=== PATIENT | male | born 1945 | race Caucasian/White ===

== ENCOUNTER → 2022-04-26 02:39 | Outpatient (CLI) | payer MEDICARE, BC, SELFPAY ==
--- NOTE | 2022-04-26 14:00 | DI.US_ITS ---
APPROVED REPORT EXAM: Comprehensive 2D, Doppler, and color-flow Echocardiogram Patient Location: Out-Patient Baggage Porter: Danyelle Pardo RDCS (AE) Indications: SOB,Edema Other Information Study Quality: Adequate Conclusion Normal left ventricular wall thickness and chamber size. Estimated ejection fraction is 55 to 60%. Wall motion is normal Normal right ventricular size and systolic function Both atria are normal in size Trileaflet aortic valve without stenosis or regurgitation Normal mitral valve with mild regurgitation Normal tricuspid valve with trace to mild regurgitation. Estimated right ventricular systolic pressu re is 30 mmHg Wall motion Left Ventricle The left ventricle is normal size. The left ventricular systolic function is normal. The left ventric ular ejection fraction is within the normal range. There is normal left ventricular wall thickness. T here is normal LV segmental wall motion. There is no ventricular septal defect visualized. LVEF is 57 %. Right Ventricle The right ventricle is normal size. The right ventricular systolic function is normal. The RVSP is 29 .6mmHg. Atria The left atrium size is normal. The right atrium size is normal. The interatrial septum is intact wit h no evidence for an atrial septal defect. Aortic Valve The aortic valve is normal in structure. Aortic valve is trileaflet. There is no aortic valvular sten osis. No aortic regurgitation is present. Mitral Valve The mitral valve is normal in structure. No evidence of mitral valve stenosis. Mild mitral regurgitat ion. Tricuspid Valve The tricuspid valve is normal in structure. There is no tricuspid valve stenosis. Trace to mild tricu spid regurgitation. Pulmonic Valve The pulmonary valve is normal in structure. There is no pulmonic valvular stenosis. There is no pulmo kamla valvular regurgitation. Great Vessels The aortic root is normal in size. The ascending aorta is normal in size. Aortic arch is normal in ca liber. IVC is normal in size and collapses >50% with inspiration. Pericardium There is no pericardial effusion. 2D Dimensions IVSD d PLAX 0.85 cm M: 0.6-1.2 LV Vol A2C d MOD 160.2 mL LVPW d PLAX 0.85 cm M: 0.6 - 1.2 LV Vol A4C d MOD 148.9 mL LVID d PLAX 4.79 cm M: 4.2 - 5.8 LA vol/ BSA A2C s A-L 31.7 mL/m2 LVDs 3.25 cm M: 2.5 - 4.0 LA vol/ BSA A4C s A-L 34.9 mL/m2 Ao Root d 2.55 cm M: 3.1 - 3.7 LA Vol/ BSA Biplane s A-L 35.2 mL/m2 RA Area A4C 13.65 cm2 LA Area A4C s MOD 23.80 cm2 RA Vol/ BSA A4C s A-L 16.5 mL/m2 LA Area A2C s MOD 21.41 cm2 Ao Asc Diam d 3.25 cm M: 2.6 - 3.4 LV EF A4C MOD 55.3 % LV EF Teichholz 59.9 % LV EF A2C MOD 57.9 % LVEF (Aponte's) 57.11 % M: 52 - 72 LV EF Biplane MOD 57.1 % LV Volume 114.87 mL M: 62 - 150 SV 89.36 mL LV Volume Index 53.92 mL/m2 M: 34 - 74 SV Index 41.84 mL/m2 LV Vol Biplane MOD 156.5 mL FS 31.90 % M-Mode TAPSE 2.66 cm (M/F) >1.7 LV Diastology MV E' medial 0.075 (>0.07 m/s) E/A Ratio 0.6 LV E/e MED 7.35 (<14) MV E Vmax 0.55 (0.4-1.3 m/s) MV E' lateral 0.108 (>0.1 m/s) MV A Vmax 0.90 (0.4-1.3 m/s) LV E/e LAT 5.10 (<14) MV E/A Ratio 0.59 MV E/E' medial 7.36 MV E/E' lateral 5.13 Aortic Valve LVOT Area 3.59 cm2 AoV Area Vmax 2.77 cm2 LVOT Vmax 0.91 m/s AoV Area/ BSA (Vmax) 1.30 cm2/m2 LVOT Mean Roland. 0.58 m/s DIGNA Mean Roland. 2.49 cm2 LVOT Peak Grad 3.3 mmHg DIGNA Mean Roland. Index 1.17 cm2/m2 LVOT Mean Grad 1.6 mmHg LVOT VTI 0.194 m LVOT Diam s 2.10 cm AoV Vmax 1.19 m/s Velocity Ratio 0.76 AoV Mean Roland. 0.83 m/s AoV Peak Grad 5.6 mmHg LVOT SV 69.57 mL AoV Mean Grad 3.2 mmHg AoV VTI 0.252 m AoV Area VTI 2.76 cm2 AoV Area/ BSA (VTI) 1.29 cm/m2 Mitral Valve MV DT 213 (160-240 msec) MV PHT 62 msec MV Area PHT 3.57 cm2 MV VTI 0.270 m MV Area VTI 2.58 (4.0-6.0 cm2) Pulmonary Valve PV Vmax 1.04 (0.5-1.5 m/s) RVOT Peak Gr. 1.56 mmHg PV Peak Grad 4.4 mmHg RVOT Mean Gr. 0.80 mmHg PV Mean Grad 2.3 mmHg RVOT VTI 0.147 m PV VTI 0.263 m RVOT Vmax 0.62 m/s Tricuspid Valve TR Peak Grad 26.6 mmHg TR Vmax 2.58 m/s RA Pressure 3.00 mmHg RVSP (TR) 29.6 mmHg
== END ==
PROVIDERS: Visit Provider Neuromusculoskeletal Medicine & OMM
DX: R06.02 Shortness of breath (principal)
CPT/HCPCS: 93306

== ENCOUNTER → 2022-06-28 12:30 | Outpatient (BNVA) | payer MEDICARE, BC, SELFPAY | PROVIDERS: PCP Neuromusculoskeletal Medicine & OMM; Visit Provider Internal Medicine Cardiovascular Disease | DX: Z86.16 Personal history of COVID-19 (principal); R07.9 Chest pain, unspecified; I10 Essential (primary) hypertension; I49.3 Ventricular premature depolarization | CPT/HCPCS: 93005; 99203 ==

== ENCOUNTER 2022-06-28 12:37 | Outpatient (CLI) | payer MEDICARE, BC, SELFPAY ==
--- NOTE | 2022-06-28 12:30 | RT.EKG_ITS ---
APPROVED REPORT Exam: Resting ECG Reason for Exam: NPV chest pain Patient Location: O HR:74 bpm ECG Measurements Heart Rate 74 AXIS RI 162 P -18 QRSd 87 QRS -45 QT 383 T 19 QTc 425 Conclusion Sinus rhythm...normal P axis, V-rate 50- 99 Ventricular trigeminy...trigeminy string>6 w/ V complexes LAFB
== END 2022-06-28 12:38 | disposition home or self-care (01) ==
LOC: DI.CARD 12:43
PROVIDERS: PCP Neuromusculoskeletal Medicine & OMM; Visit Provider Internal Medicine Cardiovascular Disease
DX: R07.9 Chest pain, unspecified (principal); R94.31 Abnormal electrocardiogram [ECG] [EKG]
CPT/HCPCS: 93010

== ENCOUNTER 2022-07-05 00:59 | Outpatient (CLI) | payer MEDICARE, BC, SELFPAY ==
--- NOTE | 2022-07-05 07:00 | DI.NM_ITS ---
APPROVED REPORT Exam: Exercise Treadmill Patient Location: Out-Patient Room/Bed: Stress Nurse: Elaine Hdez RN Ordering Provider:LUCY STRONG, Contact Number: BMI: 25.03 Baseline Rhythm: Sinus Rhythm Indications: PVCs Medical History Medical History: Asthma, Bradycardia, Dyspnea, HLD, HTN, COPD Cardiac Medications: Albuterl sulfate, Quinapril, Allergies: Aspirin, Iodinated contrast, NSAIDs, Penicillins Cardiac Risk Factors: HTN, Hyperlipidemia, Asthma, COPD Previous Cardiac Procedures: None Pretest Chest Pain Characteristics: No chest pain Exercise History: Indeterminate Physical Disabilities: None Lung Sounds: Clear to auscultation Heart Sounds: Regular Stress Test Details Test: Exercise stress testing was performed using a Raza protocol. Nuclear Acquisition: Rest Tc-99m/Stress Tc-99m 1 day Rest Isotope: Tc-99m Sestamibi. Dose: 10.0 Date: 07/05/2022 Injection Time: 1112 Stress Isotope: Tc-99m Sestamibi. Dose: 30.0 Date: 07/05/2022 Injection Time: 1325 HR Resting HR Supine: 82 bpm Max Heart Rate (APMHR): 141.559968 bpm Resting HR Standin bpm Target HR (85% APMHR): 119.018052 bpm Max HR Achieved: 150 bpm % of APMHR: 106.38 Recovery HR: 96 bpm HR response to stress: Normal HR response to stress BP Resting BP Supine: 164/88 mmHg Resting BP Standin/76 mmHg Max BP: 220/70 mmHg Recovery BP: 178/64 mmHg BP response to stress: Normal blood pressure response to stress. Comment: Hypertensive at baseline ECG Resting ECG: Sinus Rhythm Ectopy: frequent PVCs, intermittent PVC bigeminy Comment: abnormal R wave progression Stress ECG: Sinus Tachycardia ST Change: No significant ST segment changes noted Arrhythmia: Frequent multifocal PVCs, intermittent PVC bigeminy, PVC couplets. Recovery ECG: Sinus Rhythm Recovery ST Change: No significant ST segment changes noted Recovery Arrhythmia: PACs, frequent multifocal PVCs, intermittent PVC bigeminy Clinical Reason for Termination: Dyspnea Stress Symptoms: Dyspnea Exercise duration: 4 min26 sec Highest Stage Reached: Stage 2: 2.5 mph at 12% grade. Exercise capacity: 6.33 METs Smith Treadmill Score: 3.4 Rate Pressure Product: 43334 Stress ECG Conclusion 1. Resting electrocardiogram showed left anterior fascicular block, late transition, premature ventri cular contractions 2. Patient exercised on the Raza protocol and completed a workload of 6.33 METS, limited by shortnes s of breath 3. Normal heart rate and blood pressure response to exercise. Patient achieved greater than 100% of predicted heart rate for age 4. There was no electrocardiographic evidence of myocardial ischemia 5. Frequent premature ventricular contractions were seen throughout 6. See MPI report Smith Treadmill Score is 3.4 which is Moderate risk. Stress Test Summary STAGE Time (mins) Speed (mph) Grade (%) HR BP SpO2 SYMPTOMS METS Supine 82 164/88 Standing 85 158/76 94 1 3 1.7 10 118 174/60 4.5 1 min recovery 133 220/70 3 min recovery 99 202/70 6 min recovery 96 178/64 Unable to get accurate SpO2 throughout testing period, despite troubleshooting attempts. MPI Conclusion Myocardial perfusion is normal. There is no ischemia or evidence of prior infarction EF 49%, normal wall motion Radiologist Interpretation Radiologist agrees with Manager Marketing's Interpretation. Radiologist Interpretation by: Marco A Magana MD Interpretation Date/Time: 07/05/2022 17:31:16
== END 2022-07-05 01:19 ==
LOC: DI 01:00
PROVIDERS: PCP Neuromusculoskeletal Medicine & OMM; Visit Provider Internal Medicine Cardiovascular Disease
DX: R07.9 Chest pain, unspecified (principal)
CPT/HCPCS: 78452; 93016; 93018; 93017

== ENCOUNTER → 2022-07-24 09:08 | Outpatient (BNVA) | payer MEDICARE, BC, SELFPAY | PROVIDERS: PCP Neuromusculoskeletal Medicine & OMM; Referring Provider Neuromusculoskeletal Medicine & OMM; Visit Provider Internal Medicine Cardiovascular Disease | DX: I49.3 Ventricular premature depolarization (principal) | CPT/HCPCS: 99212; 99213 ==

== ENCOUNTER → 2023-01-10 10:41 | Outpatient (BNVA) | payer MEDICARE, BC, SELFPAY | PROVIDERS: PCP Neuromusculoskeletal Medicine & OMM; Referring Provider Neuromusculoskeletal Medicine & OMM; Visit Provider Psychiatry & Neurology Neurology | DX: G62.9 Polyneuropathy, unspecified (principal); I10 Essential (primary) hypertension; J44.9 Chronic obstructive pulmonary disease, unspecified | CPT/HCPCS: 99215; G2212 ==

== ENCOUNTER 2023-02-18 14:48 | Outpatient (REF) | payer MEDICARE, BC, SELFPAY ==
[2023-02-18 16:08] LABS: Abs Immature Grans 0.03 10^3/uL (0.0-0.06); Absolute Basophil Count 0.07 10^3/uL (0.0-0.2); Absolute Eosinophil Count 0.81 10^3/uL (0.0-0.7); Absolute Lymphocyte Count 1.95 10^3/uL (1.2-3.4); Absolute Monocyte Count 0.98 10^3/uL (0.1-0.8); Absolute Neutrophil Count 4.51 10^3/uL (1.2-6.7); Basophils % 0.8; Eosinophils % 9.7; HGB 16.8 g/dL (13.5-17.5); Immature Grans % 0.4; Lymphocytes % 23.4; MCH 30.8 pg (27.0-33.0); MCHC 33.6 % (32.0-36.0); MCV 92 fL (80-95); MPV 10.6 fL (8.0-11.0); Monocytes % 11.7; Platelet Count 209 10^3/uL (130-400); RBC 5.46 10^6/uL (4.36-5.78); RDW 12.8 % (11.8-14.1); RDW-SD 42.9 fL; WBC 8.35 10^3/uL (4.4-10.8)
[2023-02-20 09:39] LABS: IgE 160 IU/mL (<158)
== END 2023-02-18 14:49 | disposition home or self-care (01) ==
LOC: LBN 14:48
PROVIDERS: PCP Neuromusculoskeletal Medicine & OMM; Visit Provider Student in an Organized Health Care Education/Training Program
DX: J33.9 Nasal polyp, unspecified (principal); J45.909 Unspecified asthma, uncomplicated; Z88.6 Allergy status to analgesic agent
CPT/HCPCS: 82785; 85025

== ENCOUNTER → 2023-05-20 11:00 | Outpatient (BNVA) | payer MEDICARE, BC, SELFPAY | PROVIDERS: PCP Neuromusculoskeletal Medicine & OMM; Referring Provider Neuromusculoskeletal Medicine & OMM; Visit Provider Physician Assistant Surgical | DX: J45.909 Unspecified asthma, uncomplicated (principal); J33.9 Nasal polyp, unspecified; Z88.6 Allergy status to analgesic agent; Z79.51 Long term (current) use of inhaled steroids; Z79.899 Other long term (current) drug therapy | CPT/HCPCS: 99214 ==

== ENCOUNTER → 2023-09-02 07:59 | Outpatient (BNVA) | payer MEDICARE, BC, SELFPAY | PROVIDERS: PCP Family Medicine; Referring Provider Family Medicine; Visit Provider Physician Assistant Surgical | DX: J45.909 Unspecified asthma, uncomplicated (principal); J33.9 Nasal polyp, unspecified; Z88.6 Allergy status to analgesic agent | CPT/HCPCS: 99214 ==

== ENCOUNTER → 2023-10-03 14:02 | Outpatient (BNVA) | payer MEDICARE, BC, SELFPAY | PROVIDERS: PCP Family Medicine; Referring Provider Physician Assistant Surgical; Visit Provider Student in an Organized Health Care Education/Training Program | DX: M16.11 Unilateral primary osteoarthritis, right hip (principal) | CPT/HCPCS: 99213 ==

== ENCOUNTER → 2023-10-25 10:59 | Outpatient (BNVA) | payer MEDICARE, BC, SELFPAY | PROVIDERS: PCP Family Medicine; Referring Provider Family Medicine | DX: M16.11 Unilateral primary osteoarthritis, right hip (principal) | CPT/HCPCS: 20611; J1010 ==

== ENCOUNTER → 2023-11-18 10:44 | Outpatient (BNVA) | payer MEDICARE, BC, SELFPAY | PROVIDERS: PCP Family Medicine; Referring Provider Neuromusculoskeletal Medicine & OMM; Visit Provider Student in an Organized Health Care Education/Training Program | DX: J45.909 Unspecified asthma, uncomplicated (principal); J33.9 Nasal polyp, unspecified; Z88.6 Allergy status to analgesic agent | CPT/HCPCS: 99214 ==

== ENCOUNTER → 2024-02-03 00:55 | Outpatient (CLI) | payer MEDICARE, BC, SELFPAY ==
--- NOTE | 2024-02-03 | DI.MRI_ITS ---
Exam(s) MR UPPER JOINT RT WO EXAM: MR UPPER JOINT RT WO CLINICAL HISTORY: INJURY, S49.91XA. TECHNIQUE: Multiplanar multisequence MRI was performed. COMPARISON: Exam from 26/04 FINDINGS: BONES: There is no acute fracture or contusion pattern. Chronic deformity of the distal clavicle. Adjacent metallic artifacts may be related to prior surgery. JOINTS:The acromioclavicular joint is widened. The glenohumeral joint shows degenerative changes and small amount of fluid.. TENDONS: Supraspinatus: Distal edema and thickening without focal tear. Infraspinatus: Unremarkable. Subscapularis: Unremarkable. [place]: Unremarkable. Biceps and [place]: Unremarkable. MUSCLES: Unremarkable. GLENOID LABRUM: Unremarkable on this noncontrast examination. SOFT TISSUES: Unremarkable. OTHER: Subacromial and subdeltoid bursae shows no fluid.. IMPRESSION: Supraspinatus tendinosis. Old distal clavicle and AC joint deformity. DATA REPOSITORY:
== END ==
PROVIDERS: PCP Family Medicine; Visit Provider Family Medicine
DX: M25.511 Pain in right shoulder (principal); M75.81 Other shoulder lesions, right shoulder; M25.811 Other specified joint disorders, right shoulder
CPT/HCPCS: 73221

== ENCOUNTER → 2024-02-10 10:07 | Outpatient (BNVA) | payer MEDICARE, BC, SELFPAY | PROVIDERS: PCP Family Medicine; Referring Provider Family Medicine; Visit Provider Physician Assistant Surgical | DX: J45.909 Unspecified asthma, uncomplicated (principal); J33.9 Nasal polyp, unspecified; Z88.6 Allergy status to analgesic agent | CPT/HCPCS: 99214 ==

== ENCOUNTER 2024-03-17 15:27 | Outpatient (CLI) | payer MEDICARE, BC, SELFPAY ==
--- NOTE | 2024-03-17 10:15 | DI.RAD_ITS ---
Exam(s) XR SHOULDER RT COMPLETE 2+V EXAM: XR SHOULDER RT COMPLETE 2+V CLINICAL HISTORY: evaluate shoulder pain. TECHNIQUE: 2D digital imaging was performed. Five views. COMPARISON: CR from 06/15/2010 CR from 06/15/2010 MR MR UPPER JOINT RT WO from 02/03/2024 FINDINGS: BONES: No acute fracture is present. Old right upper rib fractures. Deformity of the scapula and gl enoid likely related to old fractures. No bony destructive lesion is seen. JOINTS: No dislocation present. Spurring at glenoid and AC joint. SOFT TISSUE: Normal. IMPRESSION: Old fractures of the glenoid and right upper ribs. Degenerative changes of glenoid and AC joint. DATA REPOSITORY: RADIATION DOSE DELIVERED:
== END 2024-03-17 15:28 | disposition home or self-care (01) ==
LOC: DIORS 15:27
PROVIDERS: PCP Family Medicine; Visit Provider Student in an Organized Health Care Education/Training Program
DX: M25.511 Pain in right shoulder (principal); M19.011 Primary osteoarthritis, right shoulder
CPT/HCPCS: 99213; 73030

== ENCOUNTER → 2024-03-26 13:04 | Outpatient (BNVA) | payer MEDICARE, BC, SELFPAY | PROVIDERS: PCP Family Medicine; Referring Provider Family Medicine; Visit Provider Student in an Organized Health Care Education/Training Program ==

== ENCOUNTER 2024-05-18 15:42 | Outpatient (CLI) | payer MEDICARE, BC, SELFPAY ==
--- NOTE | 2024-05-18 14:06 | DI.RAD_ITS ---
Exam(s) XR HIP LT COMPLETE AP PELVIS EXAM: XR HIP LT COMPLETE AP PELVIS CLINICAL HISTORY: LEFT HIP PAIN. TECHNIQUE: 2D digital imaging was performed. Two views. COMPARISON: No exams were available for comparison FINDINGS: BONES: No acute fracture is present. No bony destructive lesion is seen. JOINTS: The hip joint spaces are maintained. There is bilateral acetabular spurring. No dislocation present. The SI joints and pubic symphysis are intact. SOFT TISSUE: Normal. IMPRESSION: Mild degenerative changes of both hips. DATA REPOSITORY: RADIATION DOSE DELIVERED:
== END 2024-05-18 15:43 | disposition home or self-care (01) ==
LOC: DIORS 15:43
PROVIDERS: PCP Family Medicine; Referring Provider Family Medicine; Visit Provider Physician Assistant
DX: M16.11 Unilateral primary osteoarthritis, right hip; M16.12 Unilateral primary osteoarthritis, left hip
CPT/HCPCS: 20611; J1010; 73502

== ENCOUNTER → 2024-08-31 14:25 | Outpatient (BNVA) | payer MEDICARE, BC, SELFPAY | PROVIDERS: PCP Family Medicine; Referring Provider Family Medicine; Visit Provider Physician Assistant | DX: M16.11 Unilateral primary osteoarthritis, right hip (principal) | CPT/HCPCS: 20611; 99213; J1010 ==

== ENCOUNTER 2024-10-26 01:39 | Outpatient (CLI) | payer MEDICARE, BC, SELFPAY ==
--- NOTE | 2024-10-26 | DI.NM_ITS ---
APPROVED REPORT Exam: Pharmacologic Patient Location: Out-Patient Room/Bed: Stress Nurse: Lidya Chu RN Ordering Provider:JESSICA JOHANA, Contact Number: [phone] BMI: 27.04 Baseline Rhythm: Sinus Rhythm, RBBB Indications: Dyspnea, Medical History Medical History: Asthma, chronic obstructive lung disease, CVA, depression, edema, hx DVT, HLD, HTN, insomnia, peripheral neuropathy, PVC's Cardiac Medications: Advair, albuterol sulfate, atorvastatin, budesonide, eliquis, losartan, tramadol Allergies: Aspirin, NSAIDs, adhesive tape, iodinated contrast dyes, penicillins Cardiac Risk Factors: Asthma, HTN, HLD, COPD, former smoker Previous Cardiac Procedures: None Pretest Chest Pain Characteristics: None Exercise History: Sedentary Physical Disabilities: SOB Lung Sounds: Clear to auscultation Heart Sounds: Regular Stress Test Details Test: Pharmacologic stress was paired with low level exercise. Reason for pharmacologic stress test: physical limitation. Nuclear Acquisition: Rest Tc-99m/Stress Tc-99m 1 day Rest Isotope: Tc-99m Sestamibi. Dose: 10.0 Date: 10/26/2024 Injection Time: 1100 Stress Isotope: Tc-99m Sestamibi. Dose: 30.0 Date: 10/26/2024 Injection Time: 1300 HR Resting HR Supine: 72 bpm Max Heart Rate (APMHR): 139 bpm Resting HR Standin bpm Target HR (85% APMHR): 118 bpm Max HR Achieved: 106 bpm % of APMHR: 76 Recovery HR: 79 bpm BP Resting BP Supine: 164/82 mmHg Resting BP Standin/94 mmHg Max BP: 174/92 mmHg Recovery BP: 164/76 mmHg ECG Resting ECG: Sinus Rhythm, RBBB Ectopy: Occasional PVC's Stress ECG: Sinus Tachycardia, RBBB ST Change: Nondiagnostic low heart rate Arrhythmia: Occasioanl PVC's, bigeminy Recovery ECG: Sinus Rhythm, RBBB Recovery ST Change: Nondiagnostic low heart rate Recovery Arrhythmia: Occasioanl PVC's, bigeminy Clinical Stress Symptoms: Mild SOB Angina Score: None Rate Pressure Product: [id number] Stress ECG Conclusion 1. Resting electrocardiogram showed right bundle branch block and left anterior fascicular block 2. Patient underwent testing using pharmacologic stress with regadenoson 3. Peak heart rate achieved was 76% of predicted heart rate for age 4. Electrocardiographic portion of the test was nondiagnostic 5. Ventricular ectopic beats were noted 6. See MPI report Stress Test Summary STAGE HR BP SpO2 Symptoms NOTES Supine 72 164/82 93% Standing 73 172/94 1 min post Lexiscan injection 100 144/82 Mild SOB 3 min post Lexiscan injection 86 160/72 94% 6 min post Lexiscan injection 79 164/76 95% SOB resolved MPI Conclusion Myocardial perfusion is normal. There is no ischemia or evidence of prior infarction Calculated EF was 36% but visually LV function and wall motion appear within the range of normal
== END 2024-10-26 01:59 ==
LOC: DI 01:39
PROVIDERS: PCP Family Medicine; Visit Provider Internal Medicine Cardiovascular Disease
DX: R06.00 Dyspnea, unspecified (principal); I44.39 Other atrioventricular block
CPT/HCPCS: 78452; 93016; 93018; 93017

== ENCOUNTER 2024-10-29 01:09 | Outpatient (CLI) | payer MEDICARE, BC, SELFPAY ==
--- NOTE | 2024-10-29 14:00 | DI.US_ITS ---
APPROVED REPORT EXAM: Comprehensive 2D, Doppler, and color-flow Echocardiogram Other Information Study Quality: Adequate Conclusion Normal left ventricular wall thickness and chamber size. Ejection fraction is 50 to 55%. There are no segmental wall motion abnormalities Normal right ventricular size and function Left atrium is mildly dilated. Right atrial size is normal There is no significant valvular disease Wall motion Left Ventricle The left ventricle is normal size. The overall left ventricular systolic function appears normal. The re is normal left ventricular wall thickness. There are no segmental wall motion abnormalities There is no ventricular septal defect visualized. LVEF is 50-55%. Right Ventricle The right ventricle is normal size. The right ventricular systolic function is normal. Atria Left atrium is mildly dilated. The right atrium size is normal. The interatrial septum is intact with no evidence for an atrial septal defect. Aortic Valve The aortic valve is normal in structure. Aortic valve is trileaflet. There is no aortic valvular sten osis. No aortic regurgitation is present. Mitral Valve The mitral valve is normal in structure. No evidence of mitral valve stenosis. Trace to mild mitral r egurgitation. Tricuspid Valve The tricuspid valve is normal in structure. There is no tricuspid valve stenosis. Trace tricuspid reg urgitation. Pulmonic Valve The pulmonary valve is normal in structure. There is no pulmonic valvular stenosis. There is no pulmo kamla valvular regurgitation. Great Vessels The aortic root is normal in size. The ascending aorta is normal in size. IVC is normal in size and c ollapses >50% with inspiration. Pericardium There is no pericardial effusion. 2D Dimensions IVSD d PLAX 0.86 cm M: 0.6-1.2 Ao Root d 2.77 cm M: 3.1 - 3.7 LVPW d PLAX 0.85 cm M: 0.6 - 1.2 Ao Asc Diam d 3.00 cm M: 2.6 - 3.4 LVID d PLAX 5.72 cm M: 4.2 - 5.8 LVDs 4.35 cm M: 2.5 - 4.0 LV EF Teichholz 47.2 % FS 24.00 % LV EDV (Teich) 161.6 mL LV ESV (Teich) 85.4 mL Stroke Vol Index (Teich) 35.45 M-Mode TAPSE 2.95 cm (M/F) >1.7 LV Volumes - Method of Disks (Aponte's) Single Plane 2D LV Volumes Biplane 2D LV Volumes LV EDV A4C 120.8 mL LV EDV BP 149.92 mL M: 62 - 150 LV ESV A4C 66.1 mL LV ESV BP 83.6 mL LVEF(%) A4C 45.3 % LVEF(%) BP 44.25 % M: 52 - 72 LV EDV A2C 167.4 mL LV EDV BP Index 69.73 mL/m2 M: 34 - 74 LV ESV A2C 95.7 mL SV BP LVEF(%) A2C 42.8 % SV Index LA Volume LA Length A4C 5.8 cm LA Length A2C LA Area A4C s 16.90 cm2 LA Area A2C s LA Vol A4C A-L 41.77 mL LA Vol A2C A-L LA Vol Biplane A-L LA Vol A4C MOD 40.4 mL LA Vol A2C MOD LA Vol BP MOD RA Volume RA Area A4C 10.2 cm2 RA ESV A4C (A-L) 21.2mL RA Vol/BSA A4C A-L RA Length A4C 4.1 cm RA ESV A4C (MOD) 20.4mL LV Diastology MV E' medial 0.059 (>0.07 m/s) MV E Vmax 0.51 (0.4-1.3 m/s) MV E/E' MED 8.57 (<14) MV A Vmax 0.85 (0.4-1.3 m/s) E/A Ratio 0.6 Aortic Valve LVOT Diam s 2.20 cm Mitral Valve MV DT 180 (160-240 msec)
== END 2024-10-29 01:29 ==
LOC: DI 01:09
PROVIDERS: PCP Family Medicine; Visit Provider Internal Medicine Cardiovascular Disease
DX: R06.02 Shortness of breath (principal); I49.3 Ventricular premature depolarization
CPT/HCPCS: 93306

== ENCOUNTER 2024-11-11 00:47 | Outpatient (CLI) | payer MEDICARE, BC, SELFPAY ==
--- NOTE | 2024-11-11 | DI.CT_ITS ---
Exam(s) CT ABDOMEN PELVIS W EXAM: CT ABDOMEN PELVIS W CLINICAL HISTORY: LOW ABD PAIN, R10.30,DIARRHEA,R19.7. TECHNIQUE: Imaging Protocol: Axial computed tomography images with coronal and sagittal reformatted images were created and reviewed CONTRAST MATERIAL: Intravenous: Omnipaque 350 Contrast volume: 75 ml Oral: yes COMPARISON: CT CT ABD/PELVIS W/ CONTRAST from 06/28/2023 CT,NM,TMT NM MPI REST STRESS GRP from 10/26/2024 US US ECHOCARDIOGRAM from 10/29/2024 FINDINGS: ABDOMEN and PELVIS: Lung Bases: Large hiatal hernia again noted. Adjacent compressive atelectasis. Lingular scarring. Liver: Normal density. Stable liver cysts. No suspicious mass. Gallbladder and biliary tract: Cholecystectomy. No biliary dilation. Pancreas: Normal density. No abnormal calcifications or inflammatory process. No evidence of mass. Spleen: Normal. Kidneys: Normal size, contour and axis. No radiodense stones. No obstructive uropathy. Stable bilat eral renal cysts. No suspicious masses seen. Adrenal glands: Stable 10 millimeter right adrenal nodule. Vasculature: Abdominal aorta non-dilated. Soft tissues: Unremarkable. Bladder: No gross wall thickening. No calculi.No focal mass. Bowel: Extensive diverticulosis, greatest at the sigmoid. Moderate quantity of stool. The administe red oral contrast extends to the terminal ileum and the base of the of the cecum. There is question of a cecal mass versus stool. There is no surrounding infiltration in the adjacent fat. No obstruct ion. No bowel wall thickening. Appendectomy. Peritoneal cavity: No ascites. No focal collection. No mesenteric inflammatory response. No free air . Bones: Unremarkable for age. Reproductive organs: enlarged prostate. Lymph nodes: No pathologically enlarged lymph nodes. IMPRESSION:: Question of a cecal mass versus stool. Colonoscopy recommended for further evaluation. Extensive diverticulosis without evidence of diverticulitis. Unexpected findings RADIATION DOSE DELIVERED: 750.63mGy.cm Total DLP DATA REPOSITORY: All CT scans at this facility are submitted to the National Radiology Data Registry (NRDR) Dose Index Registry (DIR) with the [employer] ([employer]). RADIATION OPTIMIZATION: All CT scans at this facility use at least one of these dose optimization te chniques: automated exposure control; mA and/or kV adjustment per patient size (includes targeted exa ms where dose is matched to clinical indication); or iterative reconstruction.
[2024-11-11 09:28] LABS: CREATININE 1.4 mg/dL (0.70-1.30); Estimated GFR 50.49 (mL/min/1.73m2)
[2024-11-11] MEDS: Normal Saline - Diluent 50 ML VIAL IJ (10:55)
[2024-11-11] MEDS: Omnipaque 350 MG/ML 100 ML BTL 75 ML IJ (10:57)
== END 2024-11-11 01:07 ==
LOC: DI 00:47
PROVIDERS: PCP Family Medicine; Visit Provider Family Medicine
DX: R19.7 Diarrhea, unspecified (principal); R10.30 Lower abdominal pain, unspecified
CPT/HCPCS: 74177; 82565; J3490

== ENCOUNTER → 2024-11-19 08:53 | Outpatient (BNVA) | payer MEDICARE, BC, SELFPAY | PROVIDERS: PCP Family Medicine; Referring Provider Family Medicine; Visit Provider Physician Assistant Surgical | DX: J45.909 Unspecified asthma, uncomplicated (principal); J33.9 Nasal polyp, unspecified; Z88.6 Allergy status to analgesic agent | CPT/HCPCS: 99214 ==

== ENCOUNTER → 2025-02-24 11:14 | Outpatient (BNVA) | payer MEDICARE, BC, SELFPAY | PROVIDERS: PCP Family Medicine; Referring Provider Family Medicine; Visit Provider Internal Medicine Pulmonary Disease | DX: J45.40 Moderate persistent asthma, uncomplicated (principal); J33.9 Nasal polyp, unspecified; J32.9 Chronic sinusitis, unspecified; Z88.6 Allergy status to analgesic agent | CPT/HCPCS: 99214 ==

== ENCOUNTER → 2025-04-09 10:31 | Outpatient (BNVA) | payer MEDICARE, BC, SELFPAY | PROVIDERS: PCP Family Medicine; Referring Provider Family Medicine; Visit Provider Physician Assistant | DX: M16.0 Bilateral primary osteoarthritis of hip (principal) | CPT/HCPCS: 20610; J1010 ==

== ENCOUNTER 2025-05-26 03:23 | Outpatient (CLI) | payer MEDICARE, BC, SELFPAY ==
[2025-05-26] MEDS: Inhaler, Assist Device 1 EACH MC (11:13)
[2025-05-26] MEDS: Levalbuterol HFA 15 GM INH 4 PUFF IH (11:13)
--- NOTE | 2025-05-26 11:25 | W.PFT ---
Date of service: 05/26/25 Time of Service: 09:41 Pulmonary Function Test Result Indications: Asthma Impression 1. Good patient effort was noted. ATS standards for reproducibility were met. 2. Spirometry showed moderate obstructive lung disease with an FEV1 of 57% (1.61 L) 3. Following the administration of a bronchodilator there was not a significant response
== END 2025-05-26 03:24 | disposition home or self-care (01) ==
LOC: RT 03:24
PROVIDERS: PCP Family Medicine; Visit Provider Internal Medicine Pulmonary Disease
DX: J45.909 Unspecified asthma, uncomplicated (principal); J33.9 Nasal polyp, unspecified; Z88.6 Allergy status to analgesic agent
CPT/HCPCS: 00123; 94060; 99214